=== PATIENT | male | born 1975 | race Caucasian/White ===

== ENCOUNTER → 2016-12-06 | Outpatient (CLI) | payer OTHER ==
--- NOTE | 2016-12-06 08:14 | CT ---
EXAMINATION TYPE: CT sinus wo con DATE OF EXAM: 12/06/2016 7:22 AM COMPARISON: CT sinuses March 15, 2016 HISTORY: Chronic sinusitis per order. Headaches with sinus pressure. CT DLP: 628.7 mGycm. Automated Exposure Control for Dose Reduction was Utilized. TECHNIQUE: CT scan of the sinuses is performed without contrast, axial images are obtained, coronal r eformatted images are also reviewed. FINDINGS: A few tiny mucous retention cysts or polyps in bilateral maxillary sinuses are redemonstrat ed and stable in size and appearance. Remainder paranasal sinuses remain clear on current exam The os tiomeatal complex is patent on the left on the coronal images. There is persistent occlusion on the r ight due to antral mucosal thickening seen best near coronal image 19. The nasal septum is deviated t o left of midline near axial image 25 stable from prior. Visualized portion of mastoid air cells show no abnormal opacification. Pneumatized left-sided petrou s apex is redemonstrated. The globes are intact bilaterally. IMPRESSION: Stable small mucous retention cysts or polyps in bilateral maxillary sinus and marked jj rowing or suspected blockage of right ostiomeatal complex. No significant change from prior study. No acute paranasal sinus disease noted.
[2016-12-06 08:15] LABS: ALT 50 U/L (21-72); AST 70 U/L (17-59); Alkaline Phosphatase 75 U/L (38-126); Anion Gap 9 mmol/L; Blood Urea Nitrogen 8 mg/dL (9-20); Calcium 9.6 mg/dL (8.4-10.2); Carbon Dioxide 32 mmol/L (22-30); Chloride 99 mmol/L (98-107); Glucose 89 mg/dL (74-99); Non-African American GFR(MDRD) >60 (>60 ml/min/1.73 sqM); Potassium 4.1 mmol/L (3.5-5.1); Sodium 140 mmol/L (137-145); Total Bilirubin 0.5 mg/dL (0.2-1.3); Total Protein 7.5 g/dL (6.3-8.2)
== END | disposition home or self-care (01) ==
LOC: RADCTMAIN 06:41
PROVIDERS: ATTEND Family Medicine
DX: J32.9 Chronic sinusitis, unspecified (principal); R94.5 Abnormal results of liver function studies
CPT/HCPCS: 36415; 70486; 80053

== ENCOUNTER 2016-12-14 21:52 | Emergency (ER) | payer OTHER ==
[2016-12-14 22:13] VITALS: RESP 18
--- NOTE | 2016-12-14 22:47 | ED ---
General Adult HPI - General Chief complaint: Recheck/Abnormal Lab/Rx Stated complaint: rib pain Time Seen by Provider: 12/14/16 22:31 Source: patient Mode of arrival: ambulatory Limitations: no limitations - History of Present Illness Initial comments: 41-year-old male presents to the clinic complaint bilateral lower rib pain for the last day. Patient denies any injury but did have an adjustment the chiropractor yesterday for routine purposes. Patient states it does hurt when he takes a deep breath but denies any shortness of breath or chest pain. He denies any pain in the back or abdomen nausea vomiting or change in bowels. Location: chest Quality: aching Consistency: constant - Related Data Home Medications Medication Instructions Recorded Confirmed Gemfibrozil [Lopid] 600 mg PO AC-BID 08/31/14 12/14/16 Montelukast [Singulair] 10 mg PO DAILY 08/31/14 12/14/16 Sertraline [Zoloft] 50 mg PO DAILY 08/31/14 12/14/16 busPIRone HCl [Buspar] 10 mg PO BID 08/31/14 12/14/16 Previous Rx's Medication Instructions Recorded Ibuprofen [Motrin] 600 mg PO Q8HR PRN #30 tab 08/31/14 Butalb/Acetaminophen/Caffeine 1 each PO Q4HR PRN #20 tab 01/02/15 [Fioricet] Oseltamivir [Tamiflu] 75 mg PO Q12HR #10 cap 11/25/15 Allergies Allergy/AdvReac Type Severity Reaction Status Date / Time No Known Allergies Allergy Verified 12/14/16 22:13 Review of Systems ROS Statement: Those systems with pertinent positive or pertinent negative responses have been documented in the HPI. ROS Other: All systems not noted in ROS Statement are negative. Constitutional: Denies: fever, chills Respiratory: Denies: cough, dyspnea, wheezes Gastrointestinal: Denies: abdominal pain Past Medical History Past Medical History: Hyperlipidemia Additional Past Medical History / Comment(s): depression History of Any Multi-Drug Resistant Organisms: None Reported Past Surgical History: No Surgical Hx Reported Additional Past Surgical History / Comment(s): chin surgery, migraine, ENT Past Psychological History: Anxiety, Depression Smoking Status: Current some day smoker Past Alcohol Use History: None Reported Past Drug Use History: None Reported General Exam Limitations: no limitations General appearance: alert, in no apparent distress Head exam: Present: atraumatic, normocephalic, normal inspection Eye exam: Present: normal appearance, PERRL, EOMI. Absent: scleral icterus, conjunctival injection, periorbital swelling ENT exam: Present: normal exam, mucous membranes moist Neck exam: Present: normal inspection. Absent: tenderness, meningismus, lymphadenopathy Respiratory exam: Present: normal lung sounds bilaterally, chest wall tenderness (Bilateral lower chest wall rib area left greater than right). Absent: respiratory distress, wheezes, rales, rhonchi, stridor Cardiovascular Exam: Present: regular rate, normal rhythm, normal heart sounds. Absent: systolic murmur, diastolic murmur, rubs, gallop, clicks GI/Abdominal exam: Present: soft, tenderness (Right and left upper quadrant), normal bowel sounds. Absent: distended, guarding, rebound, rigid Neurological exam: Present: alert, oriented X3, CN II-XII intact Psychiatric exam: Present: normal affect, normal mood Skin exam: Present: warm, dry, intact, normal color. Absent: rash Course Vital Signs 12/14/16 22:09 Temperature 99 F Pulse Rate 68 Respiratory 18 Rate Blood Pressure 145/72 O2 Sat by Pulse 97 Oximetry Medical Decision Making - Medical Decision Making After seeing that X rays of the ribs there is no acute fracture noted however there was some possible air-fluid level in the upper abdomen. At this time I' ll be ordering multiview abdomen with decubitus views Increase stool impaction along with slight dilation of the colon increase in gas. Patient aware to increase his fluid and fiber. Disposition Clinical Impression: Constipation Disposition: HOME SELF-CARE Condition: Good Instructions: Constipation (ED) Time of Disposition: 23:36
--- NOTE | 2016-12-14 23:25 | XR ---
EXAM: XR Bilateral Ribs and AP Chest, 4 or More Views. CLINICAL HISTORY: Reason: Lower bilateral rib pain with no injury. Has adjustment by chiropractor yesterday. TECHNIQUE: Frontal and oblique views of the bilateral ribs and frontal view of the chest. COMPARISON: None FINDINGS: Bones: No acute fracture identified. Mild degenerative changes of right greater than left acromioclavicular joints. Soft tissues: Normal. Visualized lung leiva: Normal. IMPRESSION: No acute abnormality identified.
[2016-12-14 23:41] VITALS: BP 140/68; PULSE 62; TEMP 98.9
--- NOTE | 2016-12-14 23:50 | XR ---
EXAM: XR Abdomen Complete, 2 or More Views. CLINICAL HISTORY: Reason: Pain TECHNIQUE: Frontal view of the abdomen/pelvis with upright view of the abdomen. COMPARISON: None FINDINGS: Hardware: None. Abdomen: Nonobstructive bowel gas pattern. No free air. No air-fluid levels. Mild to moderate amount of stool. Bones: No acute osseous abnormality. Soft tissues: Normal. Lower chest: Normal. IMPRESSION: No acute abnormality.
== END 2016-12-14 23:40 | disposition home or self-care (01) ==
LOC: EC 21:52
DX: K59.00 Constipation, unspecified (principal); R07.81 Pleurodynia; E78.5 Hyperlipidemia, unspecified; F32.9 Major depressive disorder, single episode, unspecified; F41.9 Anxiety disorder, unspecified; F17.200 Nicotine dependence, unspecified, uncomplicated; Z79.899 Other long term (current) drug therapy
CPT/HCPCS: 71110; 74020; 99283

== ENCOUNTER 2016-12-22 04:33 | Emergency (ER) | payer OTHER ==
--- NOTE | 2016-12-22 04:41 | ED ---
General Adult HPI - General Stated complaint: nose bleed Time Seen by Provider: 12/22/16 04:35 Source: RN notes reviewed - History of Present Illness Initial comments: This is a 41-year-old male who presents to the emergency department after having had nasal surgery on Friday. Patient states he started having some bleeding and he kept changing the bandages and he continued to bleed. Patient states he called his physician in the physician on-call to go to the emergency department. Patient states he is feeling lightheaded. When EMS arrived patient 's bleeding had stopped. Patient denies any difficulty breathing patient denies any significant pain patient denies any trauma to the area. - Related Data Home Medications Medication Instructions Recorded Confirmed Gemfibrozil [Lopid] 600 mg PO AC-BID 08/31/14 12/22/16 Montelukast [Singulair] 10 mg PO DAILY 08/31/14 12/22/16 Sertraline [Zoloft] 50 mg PO DAILY 08/31/14 12/22/16 busPIRone HCl [Buspar] 10 mg PO BID 08/31/14 12/22/16 Previous Rx's Medication Instructions Recorded Ibuprofen [Motrin] 600 mg PO Q8HR PRN #30 tab 08/31/14 Butalb/Acetaminophen/Caffeine 1 each PO Q4HR PRN #20 tab 01/02/15 [Fioricet] Oseltamivir [Tamiflu] 75 mg PO Q12HR #10 cap 11/25/15 Allergies Allergy/AdvReac Type Severity Reaction Status Date / Time Penicillins Allergy Rash/Hives Verified 12/22/16 04:42 codeine AdvReac Nausea & Verified 12/22/16 04:42 Vomiting Review of Systems ROS Statement: Those systems with pertinent positive or pertinent negative responses have been documented in the HPI. ROS Other: All systems not noted in ROS Statement are negative. Past Medical History Past Medical History: Hyperlipidemia Additional Past Medical History / Comment(s): depression History of Any Multi-Drug Resistant Organisms: None Reported Past Surgical History: No Surgical Hx Reported Additional Past Surgical History / Comment(s): chin surgery, migraine, ENT Past Psychological History: Anxiety, Depression Smoking Status: Current some day smoker Past Alcohol Use History: None Reported Past Drug Use History: None Reported General Exam - General Exam Comments Initial Comments: GENERAL Patient is well-developed and well-nourished. Patient is in mild distress. EYES Patient's pupils are equal and round. Extraocular motion is intact Nose Patient had a bandage over the nose but it was free of blood SKIN Unremarkable and normal color. NEURO The patient is alert and oriented 3 PYSCH Patient has normal interpersonal interactions. Course Vital Signs 12/22/16 04:34 Temperature 97.8 F Pulse Rate 71 Respiratory 18 Rate Blood Pressure 155/76 O2 Sat by Pulse 95 Oximetry Disposition Clinical Impression: Post-op bleeding Disposition: HOME SELF-CARE Condition: Good Additional Instructions: Patient should follow the instructions of his surgeon. If he has any further problems call the surgeon. Time of Disposition: 04:52
[2016-12-22 04:54] VITALS: BP 155/76; PULSE 71; RESP 18; TEMP 97.8
[2016-12-22 04:57] LABS: Basophils % (A) 0 %; CH 32.5; CHCM 35.7; Eosinophils # (A) 0.1 k/uL (0-0.7); Eosinophils % (A) 2 %; HCT 41.4 % (39.0-53.0); HDW 2.35; HGB 14.4 gm/dL (13.0-17.5); Luc # (Auto) 0.15; Luc % (Auto) 2; Lymphocytes # (A) 1.6 k/uL (1.0-4.8); Lymphocytes % (A) 25 %; MCH 31.8 pg (25.0-35.0); MCHC 34.7 g/dL (31.0-37.0); MCV 91.4 fL (80.0-100.0); Mean Platelet Volume 6.5; Monocytes # (A) 0.5 k/uL (0-1.0); Monocytes % (A) 8 %; Neutrophils % (A) 63 %; RBC 4.53 m/uL (4.30-5.90); RDW 12.3 % (11.5-15.5); WBC 6.5 k/uL (3.8-10.6); WBC (Perox) 6.28
== END 2016-12-22 05:15 | disposition home or self-care (01) ==
LOC: EC 04:33
DX: J95.830 Postprocedural hemorrhage of a respiratory system organ or structure following a respiratory system procedure (principal); E78.5 Hyperlipidemia, unspecified; F32.9 Major depressive disorder, single episode, unspecified; F41.9 Anxiety disorder, unspecified; F17.200 Nicotine dependence, unspecified, uncomplicated; Z88.0 Allergy status to penicillin; Z88.5 Allergy status to narcotic agent; Z79.899 Other long term (current) drug therapy
CPT/HCPCS: 36415; 85025; 99283

== ENCOUNTER 2017-02-13 11:47 | Inpatient (IN) | payer MEDICAID, OTHER ==
[2017-02-13] MEDS ORDERED: ACETAMINOPHEN TAB 325 MG TAB PO PRN (16:26)
[2017-02-13] MEDS ORDERED: MAG HYDROX/AL HYDROX/SIMETH 30 ML CUP PO PRN (16:26)
[2017-02-13] MEDS ORDERED: ZIPRASIDONE 20 MG VIAL IM PRN (16:26)
[2017-02-13] MEDS ORDERED: MAGNESIUM HYDROXIDE 2,400 MG/10 ML CUP PO PRN (16:26)
[2017-02-13] MEDS ORDERED: oxyCODONE-APAP 5-325MG 1 EACH TAB PO PRN (16:29)
[2017-02-13] MEDS: busPIRone HCl 10 MG TAB PO SCH ×2 (17:33→21:56)
--- NOTE | 2017-02-13 18:38 | ED ---
Psych HPI - General Chief Complaint: Psychiatric Symptoms Stated Complaint: Mental Health Time Seen by Provider: 02/13/17 12:22 Source: police Mode of arrival: ambulatory - History of Present Illness Initial Comments: This 41-year-old white male presents for psychiatric evaluation. He apparently was petitioned and certified prior to coming in here. He apparently followed up with his psychiatrist today and they filled out the certification. There has been some statements regarding some suicidal ideations. There also is been some very threatening remarks towards others. Please see the chart for this additional documentation. The patient is denying any suicidal or homicidal ideations currently. He denies any medical complaints. No other modifying factors. - Related Data Home Medications Medication Instructions Recorded Confirmed Montelukast [Singulair] 10 mg PO DAILY 08/31/14 02/13/17 Sertraline [Zoloft] 50 mg PO DAILY 08/31/14 02/13/17 busPIRone HCl [Buspar] 10 mg PO BID 08/31/14 02/13/17 Azelastine HCl 2 sprays EA NOSTRIL BID 02/13/17 02/13/17 Fluticasone Propionate 1 spray EA NOSTRIL DAILY 02/13/17 02/13/17 Loratadine [Loratadine] 10 mg PO DAILY 02/13/17 02/13/17 oxyCODONE-APAP 5-325MG [Percocet 1 tab PO Q6H 02/13/17 02/13/17 5-325 mg] Allergies Allergy/AdvReac Type Severity Reaction Status Date / Time Penicillins Allergy Rash/Hives Verified 12/22/16 04:42 codeine AdvReac Nausea & Verified 12/22/16 04:42 Vomiting Review of Systems ROS Statement: Those systems with pertinent positive or pertinent negative responses have been documented in the HPI. ROS Other: All systems not noted in ROS Statement are negative. Past Medical History Past Medical History: Hyperlipidemia Additional Past Medical History / Comment(s): depression History of Any Multi-Drug Resistant Organisms: None Reported Past Surgical History: No Surgical Hx Reported Additional Past Surgical History / Comment(s): chin surgery, migraine, ENT Past Psychological History: Anxiety, Depression Smoking Status: Current some day smoker Past Alcohol Use History: None Reported Past Drug Use History: None Reported General Exam - General Exam Comments Initial Comments: GENERAL: The patient is well nourished and well hydrated. VITAL SIGNS: Heart rate, blood pressure, respiratory rate reviewed as recorded in nurse's notes. EYES: Pupils are round and reactive. Extraocular movements are intact. No conjunctival / lid redness or swelling. ENT: No external evidence of injury, swelling, or ecchymosis. Airway is patent. Throat is clear. NECK: Nontender. No swelling or evidence of injury. No subcutaneous emphysema. Trachea is midline. No thyroid mass. HEART: Regular rate and rhythm. Good peripheral pulses. LUNGS/CHEST: Breath sounds clear and equal bilaterally. No rales, rhonchi, or wheezes. No ecchymosis, subcutaneous emphysema, or tenderness. ABDOMEN: Abdomen soft without tenderness. No palpable masses or organomegaly. No peritoneal signs. No abdominal wall swelling or ecchymosis. EXTREMITIES: No extremity tenderness. Normal muscle tone and function. No thoracolumbar tenderness. NEUROLOGIC: Sensation is grossly intact. Cranial nerve exam reveals face is symmetrical, tongue is midline, speech is clear. SKIN: No abrasions or ecchymosis is noted. No induration or masses noted. PSYCHIATRIC: Alert and oriented. He is quite talkative. No overt anxiety, psychosis, or depression noted. Limitations: no limitations Course Vital Signs 02/13/17 12:00 Temperature 98.2 F Pulse Rate 69 Respiratory 16 Rate Blood Pressure 158/93 O2 Sat by Pulse 93 L Oximetry Medical Decision Making - Medical Decision Making The patient was seen and examined. All diagnostics were reviewed. It is felt as though he is medically cleared for further psychiatric evaluation. The psychiatric team does evaluate him and would like to admit him to the hospital for further psychiatric treatment. - Lab Data Lab Results 02/13/17 Range/Units 12:53 Urine Opiates Screen Detected H (NotDetected) Ur Oxycodone Screen Not Detected (NotDetected) Urine Methadone Screen Not Detected (NotDetected) Ur Propoxyphene Screen Not Detected (NotDetected) Ur Barbiturates Screen Not Detected (NotDetected) U Tricyclic Antidepress Not Detected (NotDetected) Ur Phencyclidine Scrn Not Detected (NotDetected) Ur Amphetamines Screen Not Detected (NotDetected) U Methamphetamines Scrn Not Detected (NotDetected) U Benzodiazepines Scrn Not Detected (NotDetected) Urine Cocaine Screen Not Detected (NotDetected) U Marijuana (THC) Screen Not Detected (NotDetected) Disposition Clinical Impression: Suicidal ideation, Homicidal ideation Disposition: ADMITTED IP TO THIS HOSP Condition: Fair Time of Disposition: 16:00 Decision Date: 02/13/17 Decision Time: 16:00
[2017-02-13] MEDS: MONTELUKAST 10 MG TAB PO SCH (21:56)
[2017-02-14 08:49] LABS: Basophils % (A) 0 %; CHCM 33.9; Eosinophils # (A) 0.1 k/uL (0-0.7); Eosinophils % (A) 1 %; HCT 46.2 % (39.0-53.0); HDW 2.38; HGB 14.9 gm/dL (13.0-17.5); Luc # (Auto) 0.11; Luc % (Auto) 1; Lymphocytes # (A) 0.9 k/uL (1.0-4.8); Lymphocytes % (A) 10 %; MCH 30.7 pg (25.0-35.0); MCHC 32.3 g/dL (31.0-37.0); MCV 94.8 fL (80.0-100.0); Mean Platelet Volume 6.3; Monocytes # (A) 0.5 k/uL (0-1.0); Monocytes % (A) 5 %; Neutrophils # (A) 6.9 k/uL (1.3-7.7); Neutrophils % (A) 82 %; RBC 4.87 m/uL (4.30-5.90); RDW 13.1 % (11.5-15.5); WBC 8.5 k/uL (3.8-10.6); WBC (Perox) 8.44
[2017-02-14] MEDS ORDERED: SERTRALINE 50 MG TAB PO SCH (09:00)
[2017-02-14 09:04] LABS: ALT 63 U/L (21-72); AST 70 U/L (17-59); Alkaline Phosphatase 76 U/L (38-126); Anion Gap 9 mmol/L; Blood Urea Nitrogen 9 mg/dL (9-20); Calcium 8.9 mg/dL (8.4-10.2); Carbon Dioxide 27 mmol/L (22-30); Chloride 103 mmol/L (98-107); Glucose 138 mg/dL (74-99); Non-African American GFR(MDRD) >60 (>60 ml/min/1.73 sqM); Potassium 4.1 mmol/L (3.5-5.1); Sodium 139 mmol/L (137-145); Total Bilirubin 0.5 mg/dL (0.2-1.3); Total Protein 6.9 g/dL (6.3-8.2)
[2017-02-14] MEDS: busPIRone HCl 10 MG TAB PO SCH (09:34)
[2017-02-14] MEDS: OLANZapine 10 MG TAB PO SCH ×2 (16:02→20:39)
[2017-02-14] MEDS: MONTELUKAST 10 MG TAB PO SCH (20:39)
--- NOTE | 2017-02-14 20:45 | CONS ---
DATE OF CONSULTATION: REASON FOR CONSULTATION: Medical clearance. 41-year-old admitted after he was petitioned and patient was diagnosed with major depression with psychosis and this is being managed by psychiatric. Patient is a bit agitated at this point of time. The patient's urine drug screen is positive and patient is on oxycodone as per the oxycodone at home although patient denied taking any of the oxycodone recently. Patient was started on this medications for her nasal cosmetic surgery that is nose job and septal surgery. The patient denied any fever or chills. Patient denied any chest pain. Patient denied any diarrhea, dysuria. REVIEW OF SYSTEMS: CONSTITUTIONAL: No fever, no malaise, no fatigue. HEENT: No recent visual problems or hearing problems. Denied any sore throat. CARDIOVASCULAR: No chest pain, orthopnea, PND, no palpitations, no syncope. PULMONARY: No shortness of breath, no cough, no hemoptysis. GASTROINTESTINAL: No diarrhea, no nausea, no vomiting, no abdominal pain. Normoactive bowel sounds. NEUROLOGICAL: No headaches, no weakness, no numbness. HEMATOLOGICAL: Denies any bleeding or petechiae. GENITOURINARY: Denies any burning micturition, frequency, or urgency. MUSCULOSKELETAL/RHEUMATOLOGICAL: Denies any joint pain, swelling, or any muscle pain. ENDOCRINE: Denies any polyuria or polydipsia. Psychiatric: As described in HPI. The rest of the 14 point review of systems is negative. Home medications include: 1. ( ). 2. ( ). 3. Fluticasone. 4. Loratadine. 5. Oxycodone. 6. Acetaminophen. PAST MEDICAL HISTORY: Significant for hyperlipidemia and depression. SOCIAL HISTORY: Patient continues to smoke. Denied any alcohol abuse or any drug abuse. FAMILY HISTORY: Significant for depression in the family. PHYSICAL EXAMINATION: Temperature 98.1, pulse of 67. Respiratory rate 20. Blood pressure 130/78. Saturating at 96% on room air. GENERAL: The patient is alert and oriented x3, not in any acute distress. Well developed, well nourished. HEENT: Pupils are round and equally reacting to light. EOMI. No scleral icterus. No conjunctival pallor. Normocephalic, atraumatic. No pharyngeal erythema. No thyromegaly. CARDIOVASCULAR: S1 and S2 present. No murmurs, rubs, or gallops. PULMONARY: Chest is clear to auscultation, no wheezing or crackles. ABDOMEN: Soft, nontender, nondistended, normoactive bowel sounds. No palpable organomegaly. MUSCULOSKELETAL: No joint swelling or deformity. EXTREMITIES: No cyanosis, clubbing, or pedal edema. NEUROLOGICAL: Gross neurological examination did not reveal any focal deficits. LABORATORY DATA: CBC and BMP are essentially within normal limits. Urine drug screen as mentioned earlier. ASSESSMENT AND PLAN: 1. Depression with psychosis management as per primary service. 2. Regarding pain management, patient is not requiring any pain medications. Oxycodone will be discontinued. 3. Nicotine abuse, counseling was provided. Thank you for letting me participate in this patient's care. We will sign off at this point of time. Call us back if needed. KEYLA
--- NOTE | 2017-02-14 21:14 | HP ---
DATE OF ADMISSION: 02/14/2017 IDENTIFYING DATA: The patient is a 41-year-old male. He lives independently. He was referred by [facility] to the emergency room for evaluation. CHIEF COMPLAINT: The patient has had disorganized behavior He was making statements regarding harm to self and others. He talked in a threatening manner in public situations. He had paranoid thinking. He was admitted on petition for involuntary hospitalization. HISTORY OF PRESENTING ILLNESS: The patient has had prior psychiatric hospitalizations at this facility in 2010; apparently he had 3 admissions over the course of about 6 weeks. He has not had a psychiatric hospitalization since. He is followed through [facility]. I reviewed medical records from [facility], including psychiatric evaluations of Dr. Lobato in [address] Barrientos in 2011 and progress notes, including his last [address] Barrientos on November 07 and February 06, 2017. According to Dr. Barrientos's note, the patient had recent problems at stores in the community. Police were called because he had apparent disruptive and inappropriate behavior. He showed paranoid thinking when he saw Dr. Barrientos, including raising questions about whether there were guns and knives in the office, as he seemed to need reassurance about that. He had suspiciousness about the intent of others. Dr. Barrientos assessed that he had paranoid thinking to the level of delusion. The history the patient provided is that he had been misinterpreted in terms of his behaviors and that he disagreed with what had been documented. His nurse case management, Madeleine Cunningham of [facility], initiated a petition for involuntary hospitalization, noting that the patient was making references that were threatening to others; he had stated that he had flushed his medications down the toilet; he made obscene comments; he made statements that he would take all his medications and end his life. He was felt to be showing increasing paranoia, agitation towards staff and employees of the mall and made threats that people would end up . Apparently at his baseline the patient does have some difficulties with interpersonal functioning. He does not have a good sense of social cues. He can have mood swings with sudden rage if things do not go his way. He can be preoccupied and compulsive. He will talk about quite unrealistic fantasies of success. He has shown difficulty in being intrusive and not respecting rights of others. Dr. 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 Barrientos's last contact, he had concern the patient may be showing symptoms of bipolar glory and that he exhibited psychosis. The patient has been followed by [facility] going back to 2010. He has been on a combination of Zoloft and BuSpar. His current dose of Zoloft is 50 mg daily and BuSpar 10 mg 3 times a day. According to Dr. Barrientos, the patient has been quite reluctant to consider any other medication options and has been very adamant that the only medicines he would take are the two noted. Patient himself reports that he has been sleeping well at night; he feels that he has been functioning in the normal range. He feels that he has been hospitalized for no sufficient reason. He does not show much insight in regards to issues that have been documented regarding his recent behavior. Patient does not ascribe to any ongoing psychiatric issues. He reports that he has been taking his medications appropriately on a daily basis. He was vague about the report that he had flushed medications down the sink or that he threatened to take all his medications. He is admitted for further evaluation. SUBSTANCE USE HISTORY: Negative. PAST MEDICAL HISTORY: The patient has a history of hyperlipidemia. Current medications include: 1. Singulair. 2. Azelastine. 3. Fluticasone. 4. Loratadine. 5. Oxycodone. Further medical history and review of systems as per medical consultation. FAMILY AND SOCIAL HISTORY: There is no information available at this time. MENTAL STATUS EXAM: The patient was casually dressed. He was appropriately dressed. He gave good eye contact. He was quite restless. He talked in a loud intense manner. He had some pressured speech and flight of ideas. He was quite adamant about feeling that all that was documented in the records was false. He had difficulty tracking the conversation and frequently would go back to the concerns he had that he brought up repeatedly. He was able to be redirected to the subject at hand though often would then slip back into his apparent ruminations. He had an intense angry affect. His mood was dysphoric. He was significantly distressed. At the same time he was cooperative and accepting feedback. On cognitive exam, the patient did not make an effort to answer formal cognitive questions. He was oriented to recent events. He knew the day. He knew where he was and the circumstances of his admission. Focus was fair at best. He was quite distractible. Memory was difficult to assess, though he seemed to be able to provide details of recent and distant events. He was able to talk about his hospitalization in 2010. Insight was poor, judgment uncertain. Fund of knowledge below average. Intellectual level moderately impaired, in the range of borderline intellectual disability. PHYSICAL EXAM: As per medical consultation. DIAGNOSTIC STUDIES: CBC was unremarkable. Hemoglobin 14.9, MCV 94.8. Comprehensive metabolic profile was remarkable for an elevated glucose of 138 and an AST of 70, creatinine 0.7. TSH 1.0. Urine drug screen negative. ASSESSMENT: This 41-year-old male is diagnosed with bipolar affective disorder, mixed phase. He may have an underlying diagnosis of major depression, and his presentation at this time may be impacted by mood and personality issues. He does present with some degree of hypomanic-type symptoms, particularly with a very intense manner, disordered thought process and increased psychomotor activity with restlessness. It would appear that he also fits criteria for Asperger's disorder, as he seems to have long-term issues with difficulties in interpersonal relationships and understanding and responding to the normal range of social cues. Current precipitants are unclear. Strengths include that the patient has been able to remain fairly stable over a number of years without regression to where he has required hospitalization. It appears that he is fairly cooperative and compliant with [facility]. DIAGNOSES: 1. Bipolar affective disorder, mixed phase. 2. Rule out major depression. 3. Asperger's disorder. 4. Hyperlipidemia. RECOMMENDATION: Patient will be admitted for comprehensive medical, psychiatric and psychosocial evaluation. Will engage the patient in individual and group therapeutic activities. It is noted that the patient was admitted on petition for involuntary hospitalization. After I had communication with the nurse case management and had an extensive discussion with the patient, he was willing to sign in voluntarily with the understanding that he would likely remain in the hospital for 5 to 7 days, that he would be started on alternative medications to his current outpatient medications. He was willing to have a meeting with the nurse case management to review admission issues as well as to work towards discharge planning. It is noted that Dr. Barrientos in his last progress note raised concern that patient may be showing some manic symptomatology and questioned whether Zoloft may need to be put on hold as a result. In regards to medications at this time, I will discontinue Zoloft and BuSpar. I will start the patient on Zyprexa 10 mg 3 times a day. I had an extensive discussion with the patient regarding the medication issues. While he said that he was willing to accept a trial of these medications, he said he was reluctant to commit himself to take these medications on a long-term basis. We will coordinate with [facility] in regards to treatment and discharge planning. KEYLA
[2017-02-15] MEDS: OLANZapine 10 MG TAB PO SCH ×3 (08:46→21:14)
[2017-02-15] MEDS: MONTELUKAST 10 MG TAB PO SCH (21:14)
[2017-02-16] MEDS: OLANZapine 5 MG TAB PO SCH ×2 (09:10→16:48)
--- NOTE | 2017-02-16 12:38 | PN ---
DATE OF SERVICE: 02/15/2017 CHIEF COMPLAINT: The patient had disorganized behavior. He was making statements regarding harm to self and others. He talked in a threatening manner in public situations. He had paranoid thinking. He was admitted on petition for involuntary hospitalization. INTERVAL HISTORY: Patient has been doing fair. He had a quiet evening last night. He slept fairly well. Today, he has been up and about. He was reluctant to make any change in his medication, however, after some discussion he was willing to initiate use of Zyprexa. He said that the initial dose of Zyprexa made him tired, though he has continued to take the medication. He says that when he is out of the hospital he will go back to taking his BuSpar and Zoloft; those medications were discontinued. The patient has attended groups. Sometimes he can be intense and intrusive. He will interact with others. When he talks with staff he usually regresses into talking about how he was hospitalized on fallacious grounds. He is quite adamant about the idea that what has been documented was not at all accurate. He can be redirected from his focus on these issues. He is fairly determined about the idea of being discharged as soon as possible. He is accepting of the idea that we need to have a treatment meeting with his machine adjuster leader case trim in order to address admission issues and plan discharge. The patient has not had change in his general health. He tolerates his psychotropic medications fairly well. MENTAL STATUS: Patient has had some ups and downs, I have seen him at a few different times in the day. He gives good eye contact. Psychomotor activity is restless. He can be intense at times, though he also can present in a calmer manner. His thoughts are clear, though he tends to ruminate about his situation and the issues relating to his admission. His affect is somewhat intense. Overall he seems to be a little calmer in his manner. His mood is dysphoric, though not significantly down or depressed. ASSESSMENT: I will continue the current diagnosis and general treatment plan. Will continue to make efforts to engage the patient in individual and group therapeutic activities. I will switch his medications so he will take Zyprexa 5 mg in the morning, 5 mg in the afternoon and 20 mg at bedtime. We will coordinate with [facility] in regards to treatment and discharge planning.
--- NOTE | 2017-02-16 16:48 | PN ---
DATE OF SERVICE: 02/16/2017 CHIEF COMPLAINT: The patient has had disorganized behavior. He has been making statements regarding harm to self and others. He talked in a threatening manner in public situations. He had paranoid thinking. He was admitted on petition for involuntary hospitalization. INTERVAL HISTORY: Patient has been doing fair. He had a quiet evening last night. He slept fairly well. Today, he has been up and about. He has been cooperative. He takes medications appropriately. He continues to be quite insistent on the idea of his being in the hospital for unfounded reasons. He is able to defer that discussion. He attends some groups but not others. He generally is appropriate. He wanders about the unit. He will interact a little with others, though mostly keeps to himself. He has not had change in his general health. He tolerates his psychotropic medications. MENTAL STATUS: Patient has a somewhat intense manner. His thoughts are clear. He can ruminate about the admission issues that he disagrees with though he cannot defer that discussion. His affect is a somewhat intense though not to a significant degree. His mood is quiet. He did not appear to be distressed. ASSESSMENT: I will continue the current diagnosis and treatment plan. We will continue psychotropic medications the same. We are aiming to have a meeting with the patient's supervisor case loading at [facility] tomorrow to help make treatment decisions in regards to his hospitalization and follow-up care.
[2017-02-16] MEDS: MONTELUKAST 10 MG TAB PO SCH (20:57)
[2017-02-16] MEDS ORDERED: OLANZapine 5 MG TAB PO SCH (21:00)
[2017-02-17 05:45] VITALS: BP 137/78; PULSE 71; RESP 16; TEMP 97.9
[2017-02-17] MEDS: OLANZapine 5 MG TAB PO SCH (09:51)
--- NOTE | 2017-02-18 09:35 | DS ---
DATE OF ADMISSION: 02/13/2017 DATE OF DISCHARGE: 02/17/2017 ADMISSION AND DISCHARGE DIAGNOSES: 1. Bipolar affective disorder, mixed phase. 2. Rule out major depression. 3. Asperger's disorder. 4. Hyperlipidemia. HISTORY OF PRESENTING ILLNESS: The patient is a 41-year-old male. He had been living independently. He [place] [facility] He was having problems with disorganized behavior. He was making statements regarding harm to self and others. He had talked in a threatening manner in public situations. He had paranoid thinking. He was admitted on petition for involuntary hospitalization. The patient had a prior psychiatric hospitalization at this facility in 2010. He has been followed up [place] [facility]. His last contact with Dr. Barrientos was February 06, 2017. At that time, Dr. Barrientos did express concern for paranoia. He had made some suggestions about changing medications. However, the patient declined to do that. The patient is very fixated on taking medications that he has been on probably going back to 2010, which includes Zoloft 50 mg a day and BuSpar 10 mg 3 times a day. In regards to the documentation regarding reason for hospitalization was adamant that what was documented is false. He repeatedly said that the things that were documented in fact did not occur. He said that he took his medications appropriately and that he has been doing well including getting along well in the community. On the other hand, he had made statements that he may have flushed medications down the sink as well had threatened to take all his medications. He was admitted for further evaluation. MENTAL STATUS EXAM: The patient gave good eye contact. He was restless. He talked in a loud intense manner with pressured speech and flight of ideas. He repeated himself frequently. He was able to be redirected. He had an angry affect. Mood was dysphoric. He was significantly distressed. Cognitive exam was within normal limits. PHYSICAL EXAM: As per medical consultation. Diagnostic studies included CBC unremarkable. Hemoglobin 14.9, MCV 94.8. CMP was remarkable for elevated glucose of 138 and AST of 70. Creatinine was 0.7. TSH 1.0. Urine drug screen negative. COURSE OF HOSPITALIZATION: The patient was admitted for comprehensive medical, psychiatric and psychosocial evaluation. We engaged the patient in individual and group therapeutic activities. Early on in the hospitalization, the patient was quite resistant to the idea of making any medication changes. He was fixed on the idea that his Zoloft and BuSpar had worked well for him over the years and he had no intention of changing. He also was very focused on the idea that what his pillowcase cutter and others had documented relating to the petition for involuntary hospitalization was false. He often would repeat himself and at times could be difficult for him to move away from that subject. As the hospitalization progressed, he did seem to become a little calmer. He generally was appropriate in his manner. He attended groups. He responded appropriately to staff. I had extensive discussions with the patient regarding treatment issues. He ultimately agreed to be started on Zyprexa. I discussed with the patient that given Dr. Barrientos's concern about initiating a new medication and also Dr. Barrientos's indication regarding paranoia that Zyprexa would be appropriate medication at this time. The patient did agree to take the medication while he was in the hospital, though said that when he got out he would return to his Zoloft and BuSpar. We had a meeting with his pillowcase cutter for mental health, Madeleine. The patient was able to ask questions and was able to make his point that he felt the documentation of others was in an error and it is noteworthy that he seemed to gain at least a little insight regarding the issues at the mall. We shared with him that out of all the people that are in the mall for whatever reason, police were called on him and that he may want to take that as a reason to try to gain some insight regarding his own behavior. We discussed a diagnosis of Asperger's disorder that he seemed to have some understanding of. He did on his own expressed that he may need some help from his peer support or pillowcase cutter about how to handle himself out in the social settings. It is noteworthy that the patient did make a case that if he had in fact had some difficult behavior it may have been attributed to the fact that he was on some pain medications and that he had stopped them. We did use that discussion as a way to focus on the idea that he acknowledged that there must have been some change in his behavior whether he says it was due to pain medications or anything else that he fact was acknowledging there was more to be concerned then just other peoples presumed misperceptions. He also was in agreement with continuing to take Zyprexa as his only medication for the next month and that he would then talk with Dr. Barrientos in regards to any other medication options. We did discuss that one option might be for him to go back on the Zoloft in combination with Zyprexa as the 2 are commonly used together. He seemed to be somewhat accepting of that as well. He made good progress during his hospitalization. CONDITION AT DISCHARGE: Patient was stable. His mood had improved. He had a calmer more appropriate manner. He was able to cooperate in setting up discharge plans. RECOMMENDATIONS AND FOLLOWUP: Patient is discharged to home. Discharge medication includes: 1. Zyprexa 15 mg at bedtime as his only psychotropic medication. 2. He will also continue Singulair 10 mg daily. 3. Loratadine 10 mg daily. 4. Fluticasone 1 spray daily. 5. Azelastine 2 sprays daily. He will discontinue continue use of Zoloft, BuSpar and oxycodone. He has a follow-up appointment at [facility] 21, 2017. He will be seen by his primary care provider. Dr. German in one week. He will be followed up psychiatrically by Dr. Barrientos at [facility] [place].
== END 2017-02-17 13:11 | disposition home or self-care (01) | DRG 885 ==
LOC: SUPCPDRO 11:47 → EC 11:47 → 3MHU 15:37
PROVIDERS: ADMIT Psychiatry & Neurology Psychiatry; ATTEND Psychiatry & Neurology Psychiatry
DX: F31.60 Bipolar disorder, current episode mixed, unspecified (principal); R45.851 Suicidal ideations; R45.850 Homicidal ideations; E78.5 Hyperlipidemia, unspecified; F84.5 Asperger's syndrome; F60.3 Borderline personality disorder; F70 Mild intellectual disabilities; R73.09 Other abnormal glucose; F41.9 Anxiety disorder, unspecified; F29 Unspecified psychosis not due to a substance or known physiological condition; F17.200 Nicotine dependence, unspecified, uncomplicated; Z81.8 Family history of other mental and behavioral disorders; Z88.5 Allergy status to narcotic agent; Z88.0 Allergy status to penicillin; Z86.69 Personal history of other diseases of the nervous system and sense organs; Z79.899 Other long term (current) drug therapy; Z71.6 Tobacco abuse counseling; Z79.51 Long term (current) use of inhaled steroids
CPT/HCPCS: 80053; 80306; 82075; 84443; 85025; 99285

== ENCOUNTER 2017-02-20 17:01 | Inpatient (IN) | payer MEDICAID, OTHER ==
--- NOTE | 2017-02-20 18:23 | ED ---
Psych HPI - General Source: patient, police, RN notes reviewed Mode of arrival: ambulatory <Gypsy Arnold - Last Filed: 02/20/17 20:04> <Conrad Hutchison - Last Filed: 02/20/17 20:45> - General Chief Complaint: Psychiatric Symptoms Stated Complaint: mental health Time Seen by Provider: 02/20/17 17:07 - History of Present Illness Initial Comments: Patient is a 41-year-old male presents to the emergency room for psychiatric evaluation. Patient was petitioned here by his peer support. Petitioned states that patient and made a reddening voicemail to peer support which led the petition to be filled out. Patient states he was picked up by the police with no warning. Patient states he is not suicidal or homicidal. Patient denies visual or auditory hallucinations. Patient denies alcohol use, drug use or smoking. Patient is very aggravated. Patient states that he does not need to be here. Patient states that holding him here is against the law. Patient denies concerns. Patient denies chest pain, shortness of breath, headache, dizziness, nausea, vomiting, abdominal pain. (Gypsy Arnold) - Related Data Home Medications Medication Instructions Recorded Confirmed Montelukast [Singulair] 10 mg PO DAILY 08/31/14 02/20/17 Azelastine HCl 2 sprays EA NOSTRIL BID 02/13/17 02/20/17 Fluticasone Propionate 1 spray EA NOSTRIL DAILY 02/13/17 02/20/17 Loratadine 10 mg PO DAILY 02/13/17 02/20/17 Previous Rx's Medication Instructions Recorded OLANZapine [ZyPREXA] 15 mg PO HS #30 tab 02/17/17 Allergies Allergy/AdvReac Type Severity Reaction Status Date / Time Penicillins Allergy Rash/Hives Verified 02/20/17 17:06 codeine AdvReac Nausea & Verified 02/20/17 17:06 Vomiting Review of Systems ROS Other: All systems not noted in ROS Statement are negative. <Gypsy Arnold - Last Filed: 02/20/17 20:04> ROS Other: All systems not noted in ROS Statement are negative. <Conrad Hutchison - Last Filed: 02/20/17 20:45> ROS Statement: Those systems with pertinent positive or pertinent negative responses have been documented in the HPI. Past Medical History Past Medical History: Hyperlipidemia Additional Past Medical History / Comment(s): depression History of Any Multi-Drug Resistant Organisms: None Reported Past Surgical History: No Surgical Hx Reported Additional Past Surgical History / Comment(s): chin surgery, migraine, ENT Past Psychological History: Anxiety, Depression Smoking Status: Current some day smoker Past Alcohol Use History: None Reported Past Drug Use History: None Reported <Gypsy Arnold - Last Filed: 02/20/17 20:04> General Exam Limitations: no limitations General appearance: alert, anxious Head exam: Present: atraumatic, normocephalic, normal inspection Eye exam: Present: normal appearance Neck exam: Present: normal inspection Respiratory exam: Present: normal lung sounds bilaterally. Absent: respiratory distress Cardiovascular Exam: Present: regular rate, normal rhythm, normal heart sounds Extremities exam: Present: normal inspection Back exam: Present: normal inspection Neurological exam: Present: alert Psychiatric exam: Present: normal affect Expanded Focused psych exam: Present: restlessness Skin exam: Present: warm, dry, intact, normal color. Absent: rash <Gypsy Arnold - Last Filed: 02/20/17 20:04> <Conrad Hutchison - Last Filed: 02/20/17 20:45> - General Exam Comments Initial Comments: Pacing in exam room (Gypsy Arnold) Medical Decision Making <Gypsy Arnold - Last Filed: 02/20/17 20:04> <Conrad Hutchison - Last Filed: 02/20/17 20:45> - Medical Decision Making patient is a 41-year-old male presents emergency room for psychiatric evaluation. Patient dictation by peer support at [facility]. Patient medically cleared to be evaluated by psych. Patient evaluated by psych and does meet admission criteria. (Gypsy Arnold) I spoke with the patient recently denies having said anything threatening to his. Support person. He states he wants to sign in voluntarily so they can turnaround sign out again. He does have a court-ordered pickup. I have completed a certificate for further evaluation. Medically the patient is stable. Dr. Hutchison (Conrad Hutchison) Disposition Decision Date: 02/20/17 <Gypsy Arnold - Last Filed: 02/20/17 20:04> <Conrad Hutchison - Last Filed: 02/20/17 20:45> Clinical Impression: Bipolar disorder, manic phase Disposition: TRANSFER TO PSYCH HOSP/UNIT Condition: Stable Referrals: Madeleine German MD [Primary Care Provider] - 1-2 days
[2017-02-20] MEDS ORDERED: MAGNESIUM HYDROXIDE 2,400 MG/10 ML CUP PO PRN (22:53)
[2017-02-20] MEDS ORDERED: MAG HYDROX/AL HYDROX/SIMETH 30 ML CUP PO PRN (22:53)
[2017-02-20] MEDS ORDERED: LORazepam 1 MG TAB PO PRN (22:53)
[2017-02-20] MEDS ORDERED: ZIPRASIDONE 20 MG VIAL IM PRN (22:53)
[2017-02-20] MEDS ORDERED: ACETAMINOPHEN TAB 325 MG TAB PO PRN (22:53)
[2017-02-21 09:29] LABS: Basophils % (A) 0 %; CH 31.5; CHCM 33.6; Eosinophils # (A) 0.2 k/uL (0-0.7); Eosinophils % (A) 3 %; HCT 45.3 % (39.0-53.0); HDW 2.36; HGB 14.9 gm/dL (13.0-17.5); Luc # (Auto) 0.15; Luc % (Auto) 3; Lymphocytes # (A) 1.9 k/uL (1.0-4.8); Lymphocytes % (A) 32 %; MCH 30.9 pg (25.0-35.0); MCHC 32.9 g/dL (31.0-37.0); MCV 94.1 fL (80.0-100.0); Mean Platelet Volume 6.4; Monocytes # (A) 0.4 k/uL (0-1.0); Monocytes % (A) 6 %; Neutrophils # (A) 3.3 k/uL (1.3-7.7); Neutrophils % (A) 56 %; RBC 4.81 m/uL (4.30-5.90); RDW 12.9 % (11.5-15.5); WBC 5.9 k/uL (3.8-10.6); WBC (Perox) 5.51
[2017-02-21 10:27] LABS: ALT 56 U/L (21-72); AST 63 U/L (17-59); Alkaline Phosphatase 70 U/L (38-126); Anion Gap 10 mmol/L; Blood Urea Nitrogen 9 mg/dL (9-20); Carbon Dioxide 26 mmol/L (22-30); Chloride 104 mmol/L (98-107); Glucose 129 mg/dL (74-99); Non-African American GFR(MDRD) >60 (>60 ml/min/1.73 sqM); Potassium 4.3 mmol/L (3.5-5.1); Sodium 140 mmol/L (137-145); Total Bilirubin 0.4 mg/dL (0.2-1.3); Total Protein 6.4 g/dL (6.3-8.2)
[2017-02-21] MEDS: SERTRALINE 100 MG TAB PO SCH (12:32)
--- NOTE | 2017-02-21 16:39 | HP ---
DATE OF SERVICE: 02/21/2017 DATE OF ADMISSION: 02/20/2017 PSYCHIATRIC ADMISSION NOTE IDENTIFYING DATA: The patient is a 41-year-old male. He lives independently. He was referred by [facility] for admission. CHIEF COMPLAINT: The patient was admitted on petition for involuntary hospitalization due to threatening behavior and mood disorder. HISTORY OF PRESENTING ILLNESS: This note is limited. I refer the reader to my history and physical of February 14, 2017, and discharge summary of February 17, 2017, for details. He was discharged from this facility on Friday in coordination with [facility]. He was discharged on Zyprexa 15 mg at bedtime. He had previously signed in voluntarily though had presented on petition for involuntary hospitalization during that admission as well. At home he stopped taking his Zyprexa. He left a telephone message to his case management rn from [facility] that was perceived by the case management rn as threatening; as such, a petition was completed. In the message, he apparently was yelling loudly. He was playing music at a very loud volume. He seemed disorganized in his thoughts. He did not make any direct threatening statements, though he had an angry manner. This, combined with the previous petition of February 14, supported the current petition and certification for involuntary hospitalization. MEDICAL HISTORY, REVIEW OF SYSTEMS AND PHYSICAL EXAM: Refer to consultation of Dr. Lee, 02/14/2017, for details. MENTAL STATUS EXAM: Patient had good eye contact. He was restless. His thoughts were clear. He had an intense manner. His mood was dysphoric. He expressed a lot of distress over the idea that he was back in the hospital. He again asserted that what has been documented is not accurate, and he has quite a different opinion of things. ASSESSMENT: This 41-year-old male is readmitted for continued disorganized behavior that also includes recent documentation that he had made statements regarding harm to self and others. DIAGNOSES: 1. Mood disorder with possible psychotic symptoms of paranoia. 2. Rule out major depression versus bipolar disorder. 3. Asperger's disorder. 4. Hyperlipidemia. RECOMMENDATIONS: Patient will be admitted for comprehensive medical, psychiatric and psychosocial evaluation. We will engage the patient in individual and group therapeutic activities. I will make contact with the mental health case management rn regarding coordination of care. I will start the patient on Zoloft, which he has been taking previously. I will increase the dose to 100 mg a day. I will also start the patient on Abilify 20 mg a day. The patient agreed to take the medications with the plan of having a meeting with [facility] he has worked with to further address concerns and develop a long-term outpatient treatment plan. KEYLA
--- NOTE | 2017-02-21 19:22 | CONS ---
DATE OF CONSULTATION: 02/21/2017 REASON FOR CONSULTATION: Medical management of hyperlipidemia, smoking cessation and depression. HISTORY OF PRESENT ILLNESS: Mr. Gotti is a 41-year-old male with a known history of major depression, petition by his ( ) support for psychiatric evaluation. Apparently patient has been making threatening voice mail to ( ) support, which led to the petition to be filled out. Patient says that he was picked up by the police with no warning. Patient otherwise denied any suicidal or homicidal at this time. Denied any visual or auditory hallucinations. Denied any recent alcohol use. Denied any marijuana use. Patient does smoke about half pack per day. Patient was reaggravated and while in the ER currently the patient is anxious and he says that he has been taking his medications regularly. Patient has been having depression since 1994. Currently denied any complaints of chest pain, short of breath, no nausea or vomiting, abdominal pain tolerating p.o. diet. No recent illnesses. No headache or dizziness or lightheadedness. REVIEW OF SYSTEMS: CONSTITUTIONAL: No fever. No chills. No weakness. RESPIRATORY: No cough or sputum production. CARDIOVASCULAR: No chest pain or shortness of breath. No leg swelling. ABDOMEN: No nausea, vomiting, or abdominal pain. GENITOURINARY: Negative. ENDOCRINE: Negative. PSYCHIATRIC: Depressed, anxious. SKIN: Negative. MUSCULOSKELETAL: Negative. All other fourteen-point review of systems negative except as above. PAST MEDICAL HISTORY: Hypertension, hyperlipidemia, depression and nicotine addiction. PAST SURGICAL HISTORY: Nasal reconstruction surgery due to septal deviation, chin surgery, history of migraine. PSYCHOSOCIAL HISTORY: Anxiety and depression. SOCIAL HISTORY: Currently an everyday smoker, 1/2 pack per day and denied any alcohol. Denied any marijuana. Denied any drugs or IVDU. FAMILY HISTORY: Drug addiction. Family history of alcohol abuse. Sister had depression. Denied any history of hypertension, diabetes mellitus or premature heart disease in the family. ALLERGIES: PENICILLIN AND CODEINE. Home medications: 1. Zyprexa. 2. Loratadine. 3. Singulair. 4. Zoloft. 5. BuSpar. 6. Fluticasone nasal spray. 7. Azelastine. 8. Loratadine. PHYSICAL EXAMINATION: A 41-year-old male lying in bed comfortably. Awake, alert and oriented times three. Appears to be in no apparent distress. VITALS: Blood pressure is 136/84, pulse is 62, respirations 18, temperature afebrile. Pulse ox is 98% on room air. HEENT: Atraumatic, normocephalic. Neck is supple. No JVD. CVS: S1, S2 heard. No murmurs, no gallop, no rub. LUNGS: Bilateral air entry is present. No wheezing. No crackles. Nonlabored breathing. ABDOMEN: Soft, nontender. Bowel sounds are present. DEPUTY COURT CLERK: awake, alert and oriented times three. No focal deficit. EXTREMITIES: No edema. Pulses palpable bilaterally. No clubbing or cyanosis. PSYCHIATRIC: Cooperative. Denied any suicidal ideation. Nonsuicidal. SKIN: No rash or skin lesions. LABORATORY DATA: WBC 5.9, hemoglobin 14.9, platelets 296. Sodium 140, potassium 4.6, bicarb is 26. BUN 9, creatinine 0.8, blood sugar is 129, AST 63, TSH 1.9. UDS negative. IMPRESSION: 1. Major depression with threatening to kill. 2. History of depression. The patient takes BuSpar and Zoloft at home. 3. Hyperlipidemia. 4. Nicotine addiction. 5. Nasal septal deviation, status post nasal reconstruction surgery recently. 6. Family history of depression and alcohol abuse and drugs. Discussion and plan: Patient will be continued on home medications. Smoking cessation has been counseled extensively. Continue the current management. Follow closely. Further recommendations based on the clinical course.
[2017-02-22 02:27] VITALS: BMI 22.1
[2017-02-22] MEDS: SERTRALINE 100 MG TAB PO SCH (08:24)
--- NOTE | 2017-02-22 11:55 | P.PN ---
Progress Note - Text Interval history: The patient is found in his room he follows me to an interview room. He was readmitted to the hospital for presumed symptoms of psychosis including paranoia. The patient has been continued on Zoloft and has been started on Abilify 20 mg. Patient reports feeling tired with the Abilify but is encouraged to continue with the medication. He shows me a copy of the petition and clinical certificate completed regarding this admission. He refutes the information on those documents. He does spontaneously report however he has been banned from the local mall as there has been several complaints against him. He lacks insight into these complaints and is states that they are not busy and they have singled him out to pick on him. Mental status exam: The patient is a tall thin male he stressors unclothing eye contact is appropriate. He is pleasant and cooperative he is somewhat intrusive. Eye contact is appropriate speech is fluent and spontaneous he does have some circumstantial thought no tangential thinking flight of ideas or loose associations. He is endorsing no hallucinations or specific delusions when directly asked however he clearly feels persecuted and has some paranoid thinking. Insight and judgment are impaired. He demonstrates no verbal or physical aggressiveness. Abnormal involuntary movements observed. Plan: The patient is encouraged to continue complying with the Zoloft and Abilify. He is asking to have the BuSpar restarted we will defer that at this time. Vital signs reviewed. He is encouraged to continue participating in the milieu.
[2017-02-23] MEDS: SERTRALINE 100 MG TAB PO SCH (09:06)
--- NOTE | 2017-02-23 15:02 | P.PN ---
Progress Note - Text Interval history: The patient is found in the hallway he follows me to an interview room. He reports she's been compliant with groups he was able to sleep last night appetite is stable. He has been compliant with medication but notes he has some dry mouth possibly due to the Abilify. He is encouraged to continue with his medication he has no other questions regarding the psychotropic medication. He continues to assert that he is here for unclear reasons he would not harm himself or others and states he has no paranoid thinking. There has been no aggressive behavior demonstrated by the patient. Mental status exam: The patient's a thin male he seated calmly he is dressed in his own clothing he is cooperative pleasant and easily directed. Eye contact is good he reports his mood is fine he continues to reiterate he would like to be discharged as soon as possible. He continues to lack insight into why he was admitted and continues to deny having any symptoms. He is oriented to person place and date. He is demonstrating no verbal or physical aggressiveness. He specifically states he has no suicidal or homicidal ideation intent or plan. He demonstrates no abnormal involuntary movements. Plan: The patient will continue on his current medication we will monitor him for safety he is encouraged to continue participating in the milieu. Vital signs reviewed.
[2017-02-24] MEDS: SERTRALINE 100 MG TAB PO SCH (08:20)
--- NOTE | 2017-02-24 22:25 | PN ---
DATE OF SERVICE: 02/24/2017 CHIEF COMPLAINT: The patient was admitted on petition for involuntary hospitalization due to threatening behavior and mood disorder. INTERVAL HISTORY: Patient has been doing fairly well. He had a quiet evening last night. He slept well. Today, he has been up and about. He comes out in the milieu. Generally he keeps to himself. He has not been attending groups. He has been cooperative. He takes his medications appropriately. He does not have any complaints. We had a meeting with the patient's casey saw operator Madeleine from [facility]. The patient was able to express some of his concerns. He seemed to develop some insight as to some problem issues he may have had and what may have contributed to some of his problems. He acknowledged that he likely behaved in a way that others would interpret as threatening. He gave one stressor that may have been a contributor, namely that he has been struggling with some issues with his mother who is in a care facility where she has been for several years due to stroke. He also thinks that his opioid pain medications may have contributed to errant behavior. He seemed to be able to recognize that he may have done some things that others would interpret in a different way than he intended. He was able to state that he hoped he could be reinvolve with people. He had been working at [facility] and that he would like to move forward with care and support through [facility]. Hopefully with these issues being resolved, he did seem to develop some insight about the idea that he may have some struggles with the social process and that he may need help from staff that he is working with to learn to express himself in more appropriate ways. His casey saw operator did note that he left a message for the peer support person that did seem to suggest he may be having some paranoid thoughts. The message that he left was quite intense in how he expressed himself. He did not make direct threats, though he played music that was very loud. He was very loud, music had some theme of in it. Whether or not that was purposeful or not was not clear. Patient could acknowledge that he needs to do better ways to express anger. Overall he seemed to have a productive a meeting with his casey saw operator where he could express his thoughts and did a good job of containing any emotions that were distressing to him. He was willing to continue on his current psychotropic medications and seemed to have some understanding that it might be appropriate for him to be on an antipsychotic medication along with his antidepressant. He has not had change in his general health. He tolerates his psychotropic medication. MENTAL STATUS: Patient gave good eye contact. Psychomotor activity and speech were normal. His thoughts were clear. He was spontaneous and interactive. He was quite contained in his behavior. He was not intense in any way. He had a very positive discussion with his casey saw operator and managed himself in a very appropriate manner. His affect was in a reasonable range. He smiled some. His mood was even. He did not appear to be distressed. ASSESSMENT: I will continue the current diagnosis and treatment plan. Patient stated that he was willing to continue on his current medications of Zoloft and Abilify. He did not express any concern about the idea of being focused on be needing Buspar and a lower dose of Zoloft. He said he would accept these medications and work with outpatient physician for further care. He does understand that he will be seeing a different psychiatrist, as Dr. Barrientos will be retiring from the mental health. Patient has a deferral hearing tomorrow. If he does not have any significant issues arise, we will plan discharge after deferral. Patient does understand the 90 day treatment process. He seemed to be quite accepting of the follow-up care and treatment plan that is being recommended. KEYLA
[2017-02-25 05:06] VITALS: BP 132/77; PULSE 68; RESP 16; TEMP 98.2
[2017-02-25] MEDS: SERTRALINE 100 MG TAB PO SCH (08:50)
== END 2017-02-25 13:41 | disposition home or self-care (01) | DRG 885 ==
LOC: EC 17:01 → 3MHU 20:55
PROVIDERS: ADMIT Psychiatry & Neurology Psychiatry; ATTEND Psychiatry & Neurology Psychiatry
DX: F31.9 Bipolar disorder, unspecified (principal); R45.851 Suicidal ideations; R45.850 Homicidal ideations; F22 Delusional disorders; E78.5 Hyperlipidemia, unspecified; F84.5 Asperger's syndrome; I10 Essential (primary) hypertension; F41.9 Anxiety disorder, unspecified; T43.596A Underdosing of other antipsychotics and neuroleptics, initial encounter; T43.595A Adverse effect of other antipsychotics and neuroleptics, initial encounter; R68.2 Dry mouth, unspecified; G43.909 Migraine, unspecified, not intractable, without status migrainosus; F17.200 Nicotine dependence, unspecified, uncomplicated; Z71.6 Tobacco abuse counseling; Z81.8 Family history of other mental and behavioral disorders; Z81.1 Family history of alcohol abuse and dependence; Z81.3 Family history of other psychoactive substance abuse and dependence; Z79.899 Other long term (current) drug therapy; Z88.5 Allergy status to narcotic agent; Z98.890 Other specified postprocedural states; Z88.0 Allergy status to penicillin; Z79.51 Long term (current) use of inhaled steroids; Z82.3 Family history of stroke; Z91.14 Patient's other noncompliance with medication regimen; Z91.19 Patient's noncompliance with other medical treatment and regimen
CPT/HCPCS: 80053; 80306; 82075; 84443; 85025; 99285

== ENCOUNTER → 2017-04-18 | Outpatient (CLI) | payer OTHER ==
--- NOTE | 2017-04-18 16:37 | CT ---
EXAMINATION TYPE: CT sinus wo con DATE OF EXAM: 04/18/2017 COMPARISON: 12/06/2016 HISTORY: Patient complains of headaches, dizziness, and sinus pressure. CT DLP: 660.8 mGycm CONTRAST: None The paranasal sinuses are examined in the axial plane at 2 mm thick sections. Reconstructed images i n the coronal plane were obtained. Tiny retention cyst within the posterior lateral left maxillary sinus and in the anterior right maxil berkley sinus. The ethmoid air cells are clear. The sphenoid sinuses are clear. The frontal sinuses a re clear. The septum is evaluated. There is septal deviation to the . There is been bilateral uncinectomies. IMPRESSIONS: 1. Minimal mucosal thickening, stable from prior study. 2. Postsurgical changes.
== END | disposition home or self-care (01) ==
LOC: RADCTMAIN 15:52
PROVIDERS: ATTEND Otolaryngology Sleep Medicine
DX: J34.89 Other specified disorders of nose and nasal sinuses (principal); Z98.890 Other specified postprocedural states
CPT/HCPCS: 70486

== ENCOUNTER 2020-06-16 12:52 | Emergency (ER) | payer OTHER ==
[2020-06-16 13:10] VITALS: TEMP 98.3
[2020-06-16] MEDS ORDERED: ACETAMINOPHEN TAB 500 MG TAB PO STA (13:21)
--- NOTE | 2020-06-16 13:21 | ED ---
Abdominal Pain HPI - General Chief Complaint: Abdominal Pain Stated Complaint: abd pain Time Seen by Provider: 06/16/20 13:13 Source: patient Mode of arrival: ambulatory Limitations: no limitations - History of Present Illness Initial Comments: Patient is a 44-year-old male presenting to the emergency department with a chief complaint of abdominal pain. Patient states the symptoms have been ongoing for the past 2 weeks with gradual increase in severity. Patient states the pain is mostly located in the right upper quadrant region and seems to be co nstant, sharp in nature. Patient denies any alleviating or aggravating factors. Patient states the pain can sometimes be postprandial but that is not always the case. States he saw his primary care physician who has him scheduled for an ultrasound next week. Patient states there has been some intermittent diarrhea for the past few days. Denies any nausea or vomiting. Denies hematuria, hemato chezia or melena. Denies any night sweats or chills. Denies chest pain shortness of breath. Denies Previous abdominal surgeries. - Related Data Home Medications Medication Instructions Recorded Confirmed Montelukast [Singulair] 10 mg PO DAILY 08/31/14 02/22/17 Azelastine HCl 2 sprays EA NOSTRIL BID 02/13/17 02/22/17 Fluticasone Propionate 1 spray EA NOSTRIL DAILY 02/13/17 02/22/17 Loratadine 10 mg PO DAILY 02/13/17 02/22/17 Previous Rx's Medication Instructions Recorded ARIPiprazole [Abilify] 20 mg PO DAILY #30 tab 02/25/17 Sertraline [Zoloft] 100 mg PO DAILY #30 tab 02/25/17 Allergies Allergy/AdvReac Type Severity Reaction Status Date / Time Penicillins Allergy Rash/Hives Verified 06/16/20 13:10 codeine AdvReac Nausea & Verified 06/16/20 13:10 Vomiting Review of Systems ROS Statement: Those systems with pertinent positive or pertinent negative responses have been documented in the HPI. ROS Other: All systems not noted in ROS Statement are negative. Past Medical History Past Medical History: Hyperlipidemia Additional Past Medical History / Comment(s): depression History of Any Multi-Drug Resistant Organisms: None Reported Past Surgical History: No Surgical Hx Reported Additional Past Surgical History / Comment(s): chin surgery, migraine, ENT Past Anesthesia/Blood Transfusion Reactions: No Reported Reaction Past Psychological History: Anxiety, Depression Smoking Status: Current every day smoker Past Alcohol Use History: None Reported Past Drug Use History: None Reported General Exam Limitations: no limitations General appearance: alert, in no apparent distress Head exam: Present: atraumatic, normocephalic, normal inspection Eye exam: Present: normal appearance, PERRL, EOMI Pupils: Present: normal accommodation ENT exam: Present: normal exam, normal oropharynx, mucous membranes moist Neck exam: Present: normal inspection, full ROM. Absent: tenderness Respiratory exam: Present: normal lung sounds bilaterally. Absent: respiratory distress, wheezes, rales Cardiovascular Exam: Present: regular rate, normal rhythm, normal heart sounds GI/Abdominal exam: Present: soft, tenderness (Right upper quadrant. Negative Gutierrez's.). Absent: distended, guarding, rebound, rigid Extremities exam: Present: normal inspection, full ROM, normal capillary refill. Absent: tenderness Back exam: Present: normal inspection, full ROM. Absent: tenderness, CVA tenderness (R), CVA tenderness (L) Neurological exam: Present: alert, oriented X3, CN II-XII intact, normal gait Psychiatric exam: Present: normal mood, flat affect Skin exam: Present: warm, dry, intact, normal color Course Vital Signs 06/16/20 13:09 Temperature 98.3 F Pulse Rate 71 Respiratory 20 Rate Blood Pressure 155/75 O2 Sat by Pulse 98 Oximetry Medical Decision Making - Medical Decision Making Patient is a 44-year-old male presenting to the emergency department with a chief complaint abdominal pain. On physical examination, patient does have right upper quadrant abdominal pain but negative Gutierrez sign. CBC is unremarkable. CMP reveals hyperkalemia. Repeat potassium levels are within normal limits of 4.5. UA is unremarkable. Right upper quadrant ultrasound reveals no abnormalities. On reevaluation, patient reports improvement in symptoms and feels comfortable going home. Patient is advised to follow with his primary care physician. Short return parameters were thoroughly discussed the patient was understanding and agreeable. Case discussed with physician. - Lab Data Result diagrams: 06/16/20 13:26 06/16/20 14:20 Lab Results 06/16/20 06/16/20 06/16/20 Range/Units 13:26 13:26 13:26 WBC 6.6 (3.8-10.6) k/uL RBC 5.40 (4.30-5.90) m/uL Hgb 16.3 (13.0-17.5) gm/dL Hct 49.3 (39.0-53.0) % MCV 91.3 (80.0-100.0) fL MCH 30.2 (25.0-35.0) pg MCHC 33.1 (31.0-37.0) g/dL RDW 13.2 (11.5-15.5) % Plt Count 237 (150-450) k/uL Neutrophils % 63 % Lymphocytes % 24 % Monocytes % 6 % Eosinophils % 5 % Basophils % 0 % Neutrophils # 4.2 (1.3-7.7) k/uL Lymphocytes # 1.6 (1.0-4.8) k/uL Monocytes # 0.4 (0-1.0) k/uL Eosinophils # 0.4 (0-0.7) k/uL Basophils # 0.0 (0-0.2) k/uL Sodium 137 (137-145) mmol/L Potassium 5.4 H (3.5-5.1) mmol/L Chloride 106 (98-107) mmol/L Carbon Dioxide 25 (22-30) mmol/L Anion Gap 6 mmol/L BUN 6 L (9-20) mg/dL Creatinine 0.88 (0.66-1.25) mg/dL Est GFR (CKD-EPI)AfAm >90 (>60 ml/min/1.73 sqM) Est GFR (CKD-EPI)NonAf >90 (>60 ml/min/1.73 sqM) Glucose 97 (74-99) mg/dL Calcium 9.0 (8.4-10.2) mg/dL Total Bilirubin 0.7 (0.2-1.3) mg/dL AST 61 H (17-59) U/L ALT 41 (4-49) U/L Alkaline Phosphatase 87 (38-126) U/L Total Protein 7.5 (6.3-8.2) g/dL Albumin 4.4 (3.5-5.0) g/dL Lipase 67 (23-300) U/L Urine Color Light Yellow Urine Appearance Clear (Clear) Urine pH 7.0 (5.0-8.0) Ur Specific Bryant 1.007 (1.001-1.035) Urine Protein Negative (Negative) Urine Glucose (UA) Negative (Negative) Urine Ketones Negative (Negative) Urine Blood Negative (Negative) Urine Nitrite Negative (Negative) Urine Bilirubin Negative (Negative) Urine Urobilinogen <2.0 (<2.0) mg/dL Ur Leukocyte Esterase Negative (Negative) 06/16/20 Range/Units 14:20 WBC (3.8-10.6) k/uL RBC (4.30-5.90) m/uL Hgb (13.0-17.5) gm/dL Hct (39.0-53.0) % MCV (80.0-100.0) fL MCH (25.0-35.0) pg MCHC (31.0-37.0) g/dL RDW (11.5-15.5) % Plt Count (150-450) k/uL Neutrophils % % Lymphocytes % % Monocytes % % Eosinophils % % Basophils % % Neutrophils # (1.3-7.7) k/uL Lymphocytes # (1.0-4.8) k/uL Monocytes # (0-1.0) k/uL Eosinophils # (0-0.7) k/uL Basophils # (0-0.2) k/uL Sodium (137-145) mmol/L Potassium 4.5 (3.5-5.1) mmol/L Chloride (98-107) mmol/L Carbon Dioxide (22-30) mmol/L Anion Gap mmol/L BUN (9-20) mg/dL Creatinine (0.66-1.25) mg/dL Est GFR (CKD-EPI)AfAm (>60 ml/min/1.73 sqM) Est GFR (CKD-EPI)NonAf (>60 ml/min/1.73 sqM) Glucose (74-99) mg/dL Calcium (8.4-10.2) mg/dL Total Bilirubin (0.2-1.3) mg/dL AST (17-59) U/L ALT (4-49) U/L Alkaline Phosphatase (38-126) U/L Total Protein (6.3-8.2) g/dL Albumin (3.5-5.0) g/dL Lipase (23-300) U/L Urine Color Urine Appearance (Clear) Urine pH (5.0-8.0) Ur Specific Bryant (1.001-1.035) Urine Protein (Negative) Urine Glucose (UA) (Negative) Urine Ketones (Negative) Urine Blood (Negative) Urine Nitrite (Negative) Urine Bilirubin (Negative) Urine Urobilinogen (<2.0) mg/dL Ur Leukocyte Esterase (Negative) Disposition Clinical Impression: Abdominal pain, Diarrhea Disposition: HOME SELF-CARE Condition: Stable Instructions (If sedation given, give patient instructions): Abdominal Pain (ED) Additional Instructions: Follow up with your primary care physician. Return to emergency department if symptoms worsen. Is patient prescribed a controlled substance at d/c from ED?: No Referrals: Madeleine German MD [Primary Care Provider] - 1-2 days Time of Disposition: 14:56
[2020-06-16] MEDS ORDERED: SODIUM CHLORIDE 0.9% 1,000 ML IV STA (13:26)
[2020-06-16] MEDS ORDERED: KETOROLAC 15 MG/ML 1 ML VIAL IVP STA (13:26)
[2020-06-16 13:51] LABS: Appearance,Urine Clear (Clear); Bilirubin,Urine Negative (Negative); Blood,Urine Negative (Negative); Color,Urine Light Yellow; Glucose,Urine (UA) Negative (Negative); Ketones,Urine Negative (Negative); Leukocyte Esterase,Urine Negative (Negative); Nitrite,Urine Negative (Negative); Protein,Urine Negative (Negative); Specific Gravity,Urine 1.007 (1.001-1.035); Urobilinogen,Urine <2.0 mg/dL (<2.0)
[2020-06-16 14:00] LABS: ALT 41 U/L (4-49); AST 61 U/L (17-59); African American GFR (CKD) >90 (>60 ml/min/1.73 sqM); Albumin 4.4 g/dL (3.5-5.0); Alkaline Phosphatase 87 U/L (38-126); Anion Gap 6 mmol/L; Blood Urea Nitrogen 6 mg/dL (9-20); Carbon Dioxide 25 mmol/L (22-30); Chloride 106 mmol/L (98-107); Glucose 97 mg/dL (74-99); Non-African American GFR(CKD) >90 (>60 ml/min/1.73 sqM); Sodium 137 mmol/L (137-145); Total Bilirubin 0.7 mg/dL (0.2-1.3); Total Protein 7.5 g/dL (6.3-8.2)
[2020-06-16 14:01] LABS: Potassium 5.4 mmol/L (3.5-5.1)
--- NOTE | 2020-06-16 14:08 | US ---
EXAMINATION TYPE: US abdomen limited DATE OF EXAM: 06/16/2020 COMPARISON: NONE CLINICAL HISTORY: ruq pain. EXAM MEASUREMENTS: Liver Length: 17.2 cm Gallbladder Wall: 0.2 cm CBD: 0.4 cm Right Kidney: 11.1 x 5.2 x 5.8 cm Pancreas: visualized portions wnl Liver: wnl Gallbladder: No stones seen Evidence for sonographic Gutierrez's sign: No CBD: wnl Right Kidney: No hydronephrosis or masses seen IMPRESSION: 1. No evidence of acute process.
[2020-06-16 14:20] LABS: Basophils % (A) 0 %; Eosinophils # (A) 0.4 k/uL (0-0.7); Eosinophils % (A) 5 %; HCT 49.3 % (39.0-53.0); HGB 16.3 gm/dL (13.0-17.5); Lymphocytes # (A) 1.6 k/uL (1.0-4.8); Lymphocytes % (A) 24 %; MCH 30.2 pg (25.0-35.0); MCHC 33.1 g/dL (31.0-37.0); MCV 91.3 fL (80.0-100.0); Mean Platelet Volume 7.3; Monocytes # (A) 0.4 k/uL (0-1.0); Monocytes % (A) 6 %; Neutrophils # (A) 4.2 k/uL (1.3-7.7); Neutrophils % (A) 63 %; Platelet Count 237 k/uL (150-450); RDW 13.2 % (11.5-15.5); WBC 6.6 k/uL (3.8-10.6)
[2020-06-16 15:19] VITALS: BP 122/78; PULSE 59; RESP 16
== END 2020-06-16 15:21 | disposition home or self-care (01) ==
LOC: EC 12:52
DX: R10.11 Right upper quadrant pain (principal); R19.7 Diarrhea, unspecified; E87.5 Hyperkalemia; F17.200 Nicotine dependence, unspecified, uncomplicated; Z79.899 Other long term (current) drug therapy; Z79.51 Long term (current) use of inhaled steroids; Z88.0 Allergy status to penicillin; Z88.5 Allergy status to narcotic agent
CPT/HCPCS: 36415; 93005; 80053; 83690; 84132; 85025; 81003; 76705; 99284; 96374; 96361 ×2; J1885

== ENCOUNTER → 2022-01-30 | Outpatient (CLI) | payer OTHER ==
[2022-01-30 18:11] LABS: Basophils # (A) 0.04 X 10*3/uL (0.00-0.10); Basophils % (A) 0.4 %; Eosinophils # (A) 0.04 X 10*3/uL (0.04-0.35); Eosinophils % (A) 0.4 %; HGB 15.4 g/dL (13.0-17.0); Immature Grans, Automated 0.3 %; Lymphocytes # (A) 1.79 X 10*3/uL (0.90-5.00); Lymphocytes % (A) 19.3 %; MCH 30.1 pg (27.0-32.0); MCHC 33.5 g/dL (32.0-37.0); MCV 89.8 fL (80.0-97.0); Mean Platelet Volume 9.5 fL (9.5-12.2); Monocytes # (A) 0.54 X 10*3/uL (0.20-1.00); Monocytes % (A) 5.8 %; NRBC Per 100 WBC 0 /100 WBCS (0.0-0.0); Neutrophils # (A) 6.84 X 10*3/uL (1.80-7.70); Neutrophils % (A) 73.8 %; Platelet Count 306 X 10*3/uL (140-440); RBC 5.12 X 10*6/uL (4.40-5.60); WBC 9.28 X 10*3/uL (4.50-10.00)
[2022-01-30 18:26] LABS: ALT 42 U/L (10-49); AST 48 U/L (14-35); African American GFR (CKD) 112.9 (60.0-200.0); Albumin 4.2 g/dL (3.8-4.9); Albumin/Globulin Ratio 1.58 (1.60-3.17); Alkaline Phosphatase 103 U/L (41-126); BUN/Creat Ratio 12.96 Ratio (12.00-20.00); Blood Urea Nitrogen 12.2 mg/dL (9.0-27.0); Calcium 8.9 mg/dL (8.7-10.3); Carbon Dioxide 21.9 mmol/L (20.0-27.5); Chloride 105 mmol/L (96-109); Chol/HDL Ratio 3.67 Ratio; Globulin 2.7 g/dL (1.6-3.3); Glucose 104 mg/dL (70-110); Non-African American GFR(CKD) 97.4 (60.0-200.0); Potassium 3.6 mmol/L (3.5-5.5); Sodium 138 mmol/L (135-145); Total Protein 6.9 g/dL (6.2-8.2); VLDL Calculation 15.88 mg/dL (5.00-40.00)
== END | disposition home or self-care (01) ==
LOC: LABWHC1 12:46
PROVIDERS: ATTEND Family Medicine
DX: Z00.00 Encounter for general adult medical examination without abnormal findings (principal)
CPT/HCPCS: 36415; 80053; 80061; 84443; 85025